=== PATIENT | female | born 1990 | race Caucasian/White ===

== ENCOUNTER 2019-08-21 09:07 | Outpatient (CLI) | payer BC, SELFPAY ==
--- NOTE | ~2019-08-21 | US_ITS ---
EXAMINATION: US abdomen complete EXAM DATE: 08/21/2019 10:33 INDICATION: Liver mass, right upper quadrant pain. TECHNIQUE: Multiple grayscale and Doppler images of the complete abdomen were obtained (by a technolo gist who performed the scan) and subsequently reviewed. Correlation is made to CT abdomen pelvis 2018. FINDINGS: The abdominal aorta is normal in caliber. Visualized portion IVC is patent. The pancreatic head a nd body are normal in appearance. The pancreatic tail is not visualized. The liver has normal echogenicity and contour. Left liver lobe anechoic lesion, cyst measuring 1.6 c m. This corresponds to the CT finding. There is no evidence of intrahepatic biliary duct dilation. Portal venous flow was seen in the hepatopedal, normal direction and has normal Doppler waveform. Common bile duct measures 4 mm, which is normal. The gallbladder wall is normal in thickness, with ex pected amount of distention. No sonographic evidence of pericholecystic fluid. There is no cholelit hiases. Technologist performing exam reports patient did not demonstrate sonographic Cano's sign. Please note that this sign is less reliable in patients who have received pain medication. Right kidney: There is normal contour and echogenicity. It measures 10.6 x 4.7 x 4.5 centimeters. There are no focal renal lesions identified. There is no hydronephrosis. Left kidney: There is normal contour and echogenicity. It measures 11.2 x 3.5 x 5.6 centimeters. T here are no focal renal lesions identified. There is no hydronephrosis. The spleen measures 10.4 centimeters and is morphologically normal. IMPRESSION: 1. Small liver cyst. 2. Unremarkable gallbladder. Reviewed, dictated and finalized at location B.
== END 2019-08-21 09:08 | disposition home or self-care (01) ==
PROVIDERS: PCP Family Medicine; Visit Provider Family Medicine
DX: D3A.8 Other benign neuroendocrine tumors (principal); R10.11 Right upper quadrant pain; R16.0 Hepatomegaly, not elsewhere classified; K76.89 Other specified diseases of liver
CPT/HCPCS: 76700

== ENCOUNTER 2019-11-05 01:25 | Outpatient (CLI) | payer BC, SELFPAY ==
[2019-11-05 19:20] LABS: SARS-CoV-2 RNA PCR Negative
== END 2019-11-05 01:26 | disposition home or self-care (01) ==
LOC: ANHCOVIDDT 01:25
PROVIDERS: PCP Family Medicine; Visit Provider Internal Medicine Gastroenterology
DX: Z01.812 Encounter for preprocedural laboratory examination (principal); Z20.828 Contact with and (suspected) exposure to other viral communicable diseases
CPT/HCPCS: 87635; C9803; U0003

== ENCOUNTER 2019-11-07 02:09 | Day surgery (SDC) | payer BC, SELFPAY ==
[2019-10-30 10:03] VITALS: BMI 37.1
--- NOTE | 2019-11-07 11:17 | WPDANESEPPF ---
Anes - Initial Pre Proc Eval Procedure: Operation Date: 11/07/19 12:45 Proposed Procedures p Colonoscopy - Virgil Mckenna MD Date/Time: 11/07/19 11:17 Surgeon: Virgil Mckenna MD Pre Op Diagnosis: Melena Patient Data Age: 29 Gender: F Height: 1.68 m Weight: 104.5 kg Allergies Allergy/AdvReac Type Severity Reaction Status Date / Time No Known Allergies Allergy Verified 11/07/19 11:38 Home Medications Medication Instructions Recorded Confirmed Type ethynodiol diacetate-ethinyl 1 tablet PO DAILY 02/13/19 10/30/19 History estradiol 1 mg-35 mcg tablet ferrous sulfate [iron] 325 mg PO DAILY 10/30/19 10/30/19 History peg 3350-electrolytes 236 240 ml PO Q10M #4000 ml 11/05/19 Rx gram-22.74 gram-6.74 gram-5.86 gram solution Patient hx anesthesia problems: none Family hx anesthesia problems: none PMFSH Past Medical History Medical History (Updated 11/07/19 @ 11:17 by Rolan Solorzano MD) Anemia Appendicitis Blood in stool Dermoid cyst of left ovary Eczema Liver cyst Migraines Neuroendocrine neoplasm of appendix Obesity Surgical History Surgical History (Updated 02/16/19 @ 19:35 by Roberta Ochoa MD) H/O ovarian cystectomy S/P appendectomy Family History Family History (Updated 10/23/13 @ 07:13 by DOCTOR UNKNOWN) Grandparent Family history of malignant neoplasm of brain Family history of type 2 diabetes mellitus Social History Social History (Updated 08/07/19 @ 16:51 by Alana Leiva) Smoking status: Never smoker Second hand tobacco smoke exposure: No Alcohol intake: current Drinks per week: 0 Alcohol use details: MAY HAVE 1 OR 2 DRINKS PER MONTH Substance use: never Substance use type: does not use Living arrangements: alone Gender identity (if verbalized by the patient): Female Spiritual care concerns: No Anes - Eval Final PreProcedure Day of Procedure 11/07/19 11:17 Patient weight: obese Heart: regular rate and rhythm Lungs: clear to auscultation and normal air movement Airway: Mallampati scale class II Neurological: alert and oriented Last oral intake: >/= 8 hours ASA classification: II Emergent: no Anesthetic plan: proceed Anesthesia type and monitoring: general GIVS Informed Consent: The patient's anesthetic plan and its attendant risks and benefits were discussed with the patient/family/POA. Questions were solicited and answers provided to the satisfaction of the patient/family/POA.
[2019-11-07 11:38] VITALS: BP 131/97; PULSE 109; RESP 20; TEMP 36.9; O2SAT 98; BMI 36.6
[2019-11-07] MEDS: LACTATED RINGERS 1,000 ML 150 ML IV CONT ×2 (11:51→13:07)
--- NOTE | 2019-11-07 12:52 | PM.HPGS ---
History of Present Illness History of Present Illness Consent: Risks, benefits, and alternatives have been discussed and questions answered. Patient agrees to proceed with procedure. Chief complaint: Melena Narrative: Shilpa Rogers is a 29 year old female with neuroendocrine tumor in appendix completely removed, never had colonoscopy Review of Systems Constitutional: Constitutional: Denies headache(s) and Denies weakness Eyes: Eyes: Denies blurry vision ENT: Reports Normal hearing present, Denies headache(s) and Denies neck pain Cardiovascular: Cardiovascular: Denies chest pain and Denies dyspnea Respiratory: Respiratory: Denies dyspnea Gastrointestinal: Gastrointestinal: Reports no additional gastrointestinal complaints Genitourinary: Genitourinary: Denies dysuria Musculoskeletal: Musculoskeletal: Denies neck pain Integumentary/Breasts: Skin/Breast: Denies dry skin Neurologic: Reports Normal hearing present, Denies headache(s) and Denies weakness Psychiatric: Psychiatric: Denies anxiety Endocrine: Endocrine: Denies change in body appearance Hematologic/Lymphatic: Hematologic/Lymphatic: Denies easy bleeding Allergic/Immunologic: Allergic/Immunologic: Denies urticaria PMFSH Past Medical History Medical History (Updated 11/07/19 @ 11:17 by Rolan Solorzano MD) Anemia Appendicitis Blood in stool Dermoid cyst of left ovary Eczema Liver cyst Migraines Neuroendocrine neoplasm of appendix Obesity Surgical History Surgical History (Updated 02/16/19 @ 19:35 by Roberta Ochoa MD) H/O ovarian cystectomy S/P appendectomy Family History Family History (Updated 10/23/13 @ 07:13 by DOCTOR UNKNOWN) Grandparent Family history of malignant neoplasm of brain Family history of type 2 diabetes mellitus Social History Social History (Updated 08/07/19 @ 16:51 by Alana Leiva) Smoking status: Never smoker Second hand tobacco smoke exposure: No Alcohol intake: current Drinks per week: 0 Alcohol use details: MAY HAVE 1 OR 2 DRINKS PER MONTH Substance use: never Substance use type: does not use Living arrangements: alone Gender identity (if verbalized by the patient): Female Spiritual care concerns: No Meds Home Medications and Allergies Home Medications Medication Instructions Recorded Confirmed Type ethynodiol diacetate-ethinyl 1 tablet PO DAILY 02/13/19 10/30/19 History estradiol 1 mg-35 mcg tablet ferrous sulfate [iron] 325 mg PO DAILY 10/30/19 10/30/19 History peg 3350-electrolytes 236 240 ml PO Q10M #4000 ml 11/05/19 Rx gram-22.74 gram-6.74 gram-5.86 gram solution Allergies Allergy/AdvReac Type Severity Reaction Status Date / Time No Known Allergies Allergy Verified 11/07/19 11:38 Vital Signs Vital Signs - 24 hr 11/07/19 11:38 Temperature 98.4 F Pulse Rate 109 H Respiratory Rate 20 Blood Pressure 131/97 H Pulse Oximetry 98 Exam Const: General: comfortable and no acute distress HENMT: General nose exam: Normal nares present Eyes: General: appearance normal, both eyes and all related structures Neck: Neck: no JVD Resp: Auscultation: clear to auscultation bilaterally Cardio: Rate: regular rate Rhythm: regular rhythm GI: Inspection: non-distended GI Palp: Yes Soft to palpation Skin: General skin exam: normal color Neuro: General: gait normal Speech: normal speech Extrem: General: normal to inspection Psych: Mental Status: mental status grossly normal Assessment and Plan Assessment and plan (1) Neuroendocrine neoplasm of appendix: Code(s): D3A.8 - Other benign neuroendocrine tumors Status: Acute Assessment and Plan: will proceed with colonoscopy (2) Blood in stool: Code(s): K92.1 - Melena Status: Acute
[2019-11-07 13:10] VITALS: BP 111/71; PULSE 89; RESP 26; O2SAT 100
[2019-11-07 13:20] VITALS: BP 112/68; PULSE 86; RESP 20; O2SAT 100
[2019-11-07 13:30] VITALS: BP 116/70; PULSE 78; RESP 18; O2SAT 100
== END 2019-11-07 13:55 | disposition home or self-care (01) ==
PROVIDERS: PCP Family Medicine; Visit Provider Internal Medicine Gastroenterology
PROC: 0DJD8ZZ Inspection of Lower Intestinal Tract, Via Natural or Artificial Opening Endoscopic (ICD-10-PCS; CPT 45378; principal; 2019-11-07 12:45)
DX: D3A.8 Other benign neuroendocrine tumors (principal); K92.1 Melena
CPT/HCPCS: 45378; J7120

== ENCOUNTER 2020-04-02 12:21 | Outpatient (CLI) | payer BC, SELFPAY ==
--- NOTE | ~2020-04-02 | XR_ITS ---
XR chest 2V DATE: 04/02/2020 12:44 INDICATION: Shortness of breath TECHNIQUE: PA and lateral views COMPARISON: None FINDINGS: Normal heart size. No hilar or mediastinal enlargement. No pulmonary infiltrate or consolid ation, pleural effusion or pulmonary vascular congestion or pneumothorax. Included skeletal structure s appear normal. IMPRESSION: Negative Reviewed, dictated and finalized at location A. AROUND PLANNER IMPRESSION: Negative
--- NOTE | ~2020-04-02 | XR_ITS ---
XR knee LT 3V DATE: 04/02/2020 12:43 INDICATION: Left knee pain. No injury. TECHNIQUE: 3 views COMPARISON: None FINDINGS: No fracture or dislocation or joint effusion. No periosteal reaction or bone destruction, r adiopaque intra-articular loose body or chondrocalcinosis. IMPRESSION: Negative Reviewed, dictated and finalized at location A. ING MACHINE TENDER IMPRESSION: Negative
== END 2020-04-02 12:22 | disposition home or self-care (01) ==
PROVIDERS: PCP Family Medicine; Visit Provider Family Medicine
DX: R06.02 Shortness of breath (principal); M25.569 Pain in unspecified knee
CPT/HCPCS: 71046; 73562

== ENCOUNTER 2021-11-08 08:38 | Outpatient (CLI) | payer BC, SELFPAY ==
--- NOTE | 2021-11-10 12:46 | WPDHOLTEREM ---
Holter/Event Monitor Holter/Event Monitor Date of procedure: 11/08/21 Holter/Event Procedure: 24 Hr Holter Monitor Indications: Lightheadedness Conclusion: 1. 24 hour holter monitor on 11/08/21. 2. Underlying rhythm is sinus rhythm. HR range 52-182 bpm; average HR 84 bpm. 3. No premature supraventricular complexes. No supraventricular tachycardia. 4. There is 1 premature ventricular complex. No ventricular tachycardia. 5. No sinoatrial or atrioventricular blocks. No significant pauses greater than 2 seconds. 6. Patient reports symptoms of lightheadedness which demonstrate sinus rhythm, HR range 125-179 bpm.
== END 2021-11-08 08:39 | disposition home or self-care (01) ==
PROVIDERS: PCP Family Medicine; Visit Provider Advanced Practice Midwife
DX: R42 Dizziness and giddiness (principal)
CPT/HCPCS: 93225; 93226

== ENCOUNTER 2023-01-25 08:17 | Outpatient (CLI) | payer BC, SELFPAY ==
--- NOTE | 2023-02-14 07:05 | WPDHOMESLEEP ---
Sleep Study - Home Unattended Date of Study: 01/25/23 Ordering Provider: Roberta Ochoa MD Interpreting Provider: Sujata Ramirez, DO Home Sleep Study Type: Apnea Link Air Height: 1.68 m Weight: 99.79 kg Body Mass Index: 35.5 Neck Circumference (inches): 13.5 [place]: 12 Reason for Sleep Study Excessive jaw clenching. Request for study by dentist Sleep History The patient is a 32-year-old female that had a sleep study ordered by her primary care for evaluation of sleep apnea. The patient denies awakening from sleep short of breath. She denies awakening at night with heartburn, belching or cough. She rarely snores and is never loud enough that others complain. She frequently has trouble sleeping when she has a cold. He denies waking up gasping for air throughout the night. She denies having breathing problems at night observed by herself or others. He denies sweating excessively at night. She denies having heart palpitations or irregular heartbeats during the night. She occasionally falls asleep during the day but never while driving. She occasionally experiences loss of muscle tone when extremely emotional. She occasionally has trouble at school or work due to sleepiness. She rarely feels unable to move while waking up or falling asleep. She frequently experiences vivid dreamlike scenes upon awakening or falling asleep. She denies feeling afraid of going to sleep. She rarely has nightmares. She frequently remembers her dreams. He frequently has thoughts racing through her mind. She rarely feels sad or depressed. She constantly has anxiety. She frequently has muscular tension. She denies noticing parts of her body jerk. She frequently kicks during the night. She denies having crawling and aching feelings in her legs and denies having leg pain during the night. She occasionally grinds her teeth during sleep and frequently awakens with morning jaw pain. She is occasionally bothered by pain during the day but rarely awakened by pain during the night. She constantly wakes up feeling stiff in the morning. She occasionally wakes up with sore or achy muscles. She constantly wakes up with pain in the neck, spine or other joints. She goes to bed at 9:00 p.m. on weekdays and at 10:00 p.m. on the weekends. It takes her 20-30 minutes to fall asleep. She wakes up 2-5 times throughout the night to urinate and the amount of time it takes her to fall back asleep is variable. She wakes up at 7:00 a.m. on both weekdays and weekends. She typically gets 5-8 hours of sleep per night. She will stay in bed for 30 minutes after waking up in the morning. She currently lives with her boyfriend. She denies consuming any caffeinated beverages within 2 hours of bedtime. She denies engaging in physical exercise before bedtime. She will watch television before falling asleep. She will take naps in the afternoon or the evening but they are not refreshing. She will consume caffeinated beverages throughout the day. She denies tobacco use. She occasionally consumes alcoholic beverages. [facility] Past Medical History Medical History Anemia Appendicitis Blood in stool Dermoid cyst of left ovary Eczema Liver cyst Migraines Neuroendocrine neoplasm of appendix Obesity Surgical History Surgical History H/O ovarian cystectomy S/P appendectomy Family History Family History Grandparent Family history of malignant neoplasm of brain Family history of type 2 diabetes mellitus Social History Social History Social History: Single Smoking status: Never smoker Second hand tobacco smoke exposure: No Alcohol intake: current Alcohol use details: Occasionally Substance use: never Substance use type: does not
[2023-02-14 07:12] VITALS: BMI 35.5
== END 2023-01-26 10:37 | disposition home or self-care (01) ==
LOC: ANHCSM 08:18
PROVIDERS: PCP Family Medicine; Visit Provider Family Medicine
DX: R40.0 Somnolence (principal); F45.8 Other somatoform disorders; G47.9 Sleep disorder, unspecified
CPT/HCPCS: 95806

== ENCOUNTER 2023-04-25 09:01 | Outpatient (CLI) | payer BC, SELFPAY ==
--- NOTE | ~2023-04-25 | CT_ITS ---
EXAMINATION: CT abdomen pelvis w con DATE: 04/25/2023 09:54 INDICATION: Left lower quadrant abdominal pain TECHNIQUE: Computed tomography (CT) of the abdomen and pelvis was performed with 100 mL Omnipaque-350 intravenous contrast. Automated exposure control and iterative reconstruction technique were employe d. The dose-length product was 999.18 mGy-cm. COMPARISON: 07/31/2018 FINDINGS: Lung bases are clear. Heart size is normal. No pericardial or pleural effusion. 1.8 cm cyst in the le ft hepatic lobe adjacent to a small region of focal hepatic steatosis. Gallbladder, spleen, pancreas, bilateral adrenal glands and kidneys are normal. Bowels are unremarkable with no evident wall thicke kathleen or obstruction. The appendix is not definitively identified. No pericecal inflammatory change to suggest acute appendicitis. Retroverted uterus and bilateral adnexa are unremarkable. Small amount o f likely physiologic free fluid in the cul-de-sac. No abscess or free intraperitoneal gas. IMPRESSION: 1. Small amount of likely physiologic free fluid in the cul-de-sac. No acute intra-abdominal/pelvic p rocess. Reviewed, dictated and finalized at location B. 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 Small amount of likely physiologic free fluid in the cul-de-sac. No acute in tra-abdominal/pelvic process.
== END 2023-04-25 09:02 | disposition home or self-care (01) ==
LOC: ANHIMG 09:04
PROVIDERS: PCP Family Medicine; Visit Provider Physician Assistant
DX: D3A.8 Other benign neuroendocrine tumors (principal); K76.89 Other specified diseases of liver; K92.1 Melena; R10.32 Left lower quadrant pain
CPT/HCPCS: 74177; Q9967

== ENCOUNTER 2023-06-04 08:42 | Outpatient (CLI) | payer BC, SELFPAY ==
--- NOTE | ~2023-06-04 | MR_ITS ---
EXAMINATION: MR abdomen wo/w con DATE: 06/04/2023 09:45 INDICATION: Increase in size of a 1.8 cm liver cyst TECHNIQUE: Magnetic resonance imaging (MRI) of the abdomen was performed without and with 20 mL Multi maria del rosario intravenous contrast. Sequences included coronal T2-weighted SS-FSE, coronal and axial FS 2D-F IESTA, axial STIR FSE, axial T2-weighted SS-FSE, axial T2-weighted FS SS-FSE, axial diffusion-weighte d SE, axial dual-echo T1-weighted FSPGR, and axial and coronal T1-weighted LAVA. Postcontrast axial T 1-weighted LAVA images were obtained in a time course. Postcontrast coronal T1-weighted LAVA images w ere obtained. COMPARISON: CT dated 04/25/2023 FINDINGS: Heart size is normal. No pericardial or pleural effusion. 1.8 cm T2 hyperintense nonenhancing cyst al marshall the anterior margin of the medial segment of the left hepatic lobe. Liver is otherwise unremarkab le. Gallbladder, spleen, pancreas, bilateral adrenal glands and right kidney are normal. 9 mm T2 hype rintense nonenhancing cyst at the upper pole of the left kidney. Visualized portion of the bowels are unremarkable. No pathologically enlarged abdominal or upper pelvic lymphadenopathy. Bones are unrema rkable with normal marrow signal throughout. IMPRESSION: 1. 1.8 cm nonenhancing cyst in the left hepatic lobe. Reviewed, dictated and finalized at location B.
== END 2023-06-04 08:43 | disposition home or self-care (01) ==
LOC: ANHIMG 08:47
PROVIDERS: PCP Family Medicine; Visit Provider Nurse Practitioner
DX: D3A.8 Other benign neuroendocrine tumors (principal); K76.89 Other specified diseases of liver; R93.2 Abnormal findings on diagnostic imaging of liver and biliary tract; K76.9 Liver disease, unspecified
CPT/HCPCS: 74183; A9577

== ENCOUNTER 2023-07-20 00:59 | Day surgery (SDC) | payer BC, SELFPAY ==
[2023-07-05 09:15] VITALS: BMI 37.1
[2023-07-20 10:30] VITALS: BP 137/84; PULSE 108; RESP 16; TEMP 36.1; O2SAT 99
[2023-07-20] MEDS: LACTATED RINGERS 1,000 ML 150 ML IV CONT (10:38)
--- NOTE | 2023-07-20 11:18 | PM.HPGS ---
History of Present Illness History of Present Illness Consent: Risks, benefits, and alternatives have been discussed and questions answered. Patient agrees to proceed with procedure. Chief complaint: Hemorrhage of anus and rectum, other specified sym Narrative: Shilpa Rogers is a 33 year old female with intermittent rectal bleeding, about 6 years ago had colonoscopy when found to have neuroendocrine in appendix. Review of Systems Review of Systems: All systems reviewed & are unremarkable except as noted in HPI and below PMFSH Past Medical History Medical History Anemia Appendicitis Blood in stool Dermoid cyst of left ovary Eczema Liver cyst Migraines Neuroendocrine neoplasm of appendix Obesity Surgical History Surgical History H/O ovarian cystectomy S/P appendectomy Family History Family History Grandparent Family history of malignant neoplasm of brain Family history of type 2 diabetes mellitus Social History Social History Social History: Single Smoking status: Never smoker Second hand tobacco smoke exposure: No Alcohol intake: current Alcohol use details: Occasionally Substance use: never Substance use type: does not use Do You Feel Safe in your Home?: Yes Lack of Transportation: No Lack of Food: Never True Current Housing: I Have Housing Concerned About Future Housing: No Difficulty Paying Gas/Electric Bills: No Difficulty Paying for Meds: No Currently Unemployed: No Education: Don't Know Difficulty w/ Childcare or Family Care: No Living arrangements: alone Occupation/Education: occupation 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 Gender identity (if verbalized by the patient): Female Sexual Orientation (if Verbalized by the Patient): Straight or Heterosexual Spiritual care concerns: No Meds Home Medications and Allergies Home Medications Medication Instructions Recorded Confirmed Type azelastine 137 mcg (0.1 %) nasal 137 mcg intranasal Q12H PRN Nasal 07/05/23 07/05/23 History spray aerosol Congestion fluticasone propionate 50 1 spray intranasal DAILY PRN Nasal 07/05/23 07/05/23 History mcg/actuation nasal Congestion spray,suspension Allergies Allergy/AdvReac Type Severity Reaction Status Date / Time No Known Allergies Allergy Verified 07/20/23 10:29 Vital Signs Vital Signs - 24 hr 07/20/23 10:30 Temperature 97 F L Pulse Rate 108 H Respiratory Rate 16 Blood Pressure 137/84 Pulse Oximetry 99 Oxygen Delivery Room Air Exam Const: General: comfortable and no acute distress HENMT: Face/Nose/Sinus: Normal nares present Eyes: General: appearance normal, both eyes and all related structures Neck: Neck: no JVD Resp: Auscultation: clear to auscultation bilaterally Cardio: Rate: regular rate Rhythm: regular rhythm GI: Inspection: non-distended GI Palp: Yes Soft to palpation Skin: General skin exam: normal color Neuro: General: gait normal Speech: normal speech Extrem: General: normal to inspection Psych: Mental Status: mental status grossly normal Assessment and Plan Assessment and plan (1) Bright red blood per rectum: Code(s): K62.5 - Hemorrhage of anus and rectum Status: Acute Assessment and Plan: colonoscopy
[2023-07-20 11:36] VITALS: BP 109/67; PULSE 93; RESP 27; O2SAT 100
[2023-07-20 11:46] VITALS: BP 126/74; PULSE 93; RESP 16; O2SAT 100
[2023-07-20 11:56] VITALS: BP 127/69; PULSE 94; RESP 23; O2SAT 100
--- NOTE | 2023-07-24 12:38 | WPDANESEPPF ---
Anes - Initial Pre Proc Eval Procedure: Operation Date: 07/20/23 13:00 Proposed Procedures p Colonoscopy - Virgil Mckenna MD Date/Time: 07/24/23 12:38 Surgeon: Virgil Mckenna MD Pre Op Diagnosis: Hemorrhage of anus and rectum, other specified sym Patient Data Age: 33 Gender: F Height: 1.68 m Weight: 102.6 kg Last Vital Signs Temp 97 F L 07/20/23 10:30 Pulse 94 07/20/23 11:56 Resp 23 H 07/20/23 11:56 BP 127/69 07/20/23 11:56 Pulse Ox 100 07/20/23 11:56 O2 Del Method Room Air 07/20/23 11:56 Allergies Allergy/AdvReac Type Severity Reaction Status Date / Time No Known Allergies Allergy Verified 07/20/23 10:29 Home Medications Medication Instructions Recorded Confirmed Type azelastine 137 mcg (0.1 %) nasal 137 mcg intranasal Q12H PRN Nasal 07/05/23 07/05/23 History spray aerosol Congestion fluticasone propionate 50 1 spray intranasal DAILY PRN Nasal 07/05/23 07/05/23 History mcg/actuation nasal Congestion spray,suspension Patient hx anesthesia problems: none Family hx anesthesia problems: none Results Review: All pre-operative results and documents have been reviewed as part of the pre-operative evaluation. [facility] Past Medical History Medical History Anemia Appendicitis Blood in stool Dermoid cyst of left ovary Eczema Liver cyst Migraines Neuroendocrine neoplasm of appendix Obesity Surgical History Surgical History H/O ovarian cystectomy S/P appendectomy Family History Family History Grandparent Family history of malignant neoplasm of brain Family history of type 2 diabetes mellitus Social History Social History Social History: Single Smoking status: Never smoker Second hand tobacco smoke exposure: No Alcohol intake: current Alcohol use details: Occasionally Substance use: never Substance use type: does not use Do You Feel Safe in your Home?: Yes Lack of Transportation: No Lack of Food: Never True Current Housing: I Have Housing Concerned About Future Housing: No Difficulty Paying Gas/Electric Bills: No Difficulty Paying for Meds: No Currently Unemployed: No Education: Don't Know Difficulty w/ Childcare or Family Care: No Living arrangements: alone Occupation/Education: occupation 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 Gender identity (if verbalized by the patient): Female Sexual Orientation (if Verbalized by the Patient): Straight or Heterosexual Spiritual care concerns: No Anes - Eval Final PreProcedure Day of Procedure 07/24/23 12:38 Patient weight: obese Heart: regular rate and rhythm Lungs: clear to auscultation Airway: Mallampati scale class II Neurological: alert and oriented Last oral intake: >/= 8 hours ASA classification: III Emergent: no Anesthetic plan: proceed Anesthesia type and monitoring: general GIVS and standard monitoring Results Review: All pre-operative results and documents have been reviewed as part of the pre-operative evaluation. Informed Consent: The patient's anesthetic plan and its attendant risks and benefits were discussed with the patient/family/POA. Questions were solicited and answers provided to the satisfaction of the patient/family/POA.
== END 2023-07-20 11:59 | disposition home or self-care (01) ==
PROVIDERS: PCP Family Medicine; Referring Provider Nurse Practitioner; Visit Provider Internal Medicine Gastroenterology
PROC: 0DJD8ZZ Inspection of Lower Intestinal Tract, Via Natural or Artificial Opening Endoscopic (ICD-10-PCS; CPT 45378; principal; 2023-07-20 13:00)
DX: K92.1 Melena (principal); D64.9 Anemia, unspecified; E66.9 Obesity, unspecified; Z68.36 Body mass index [BMI] 36.0-36.9, adult; Z98.890 Other specified postprocedural states; Z85.89 Personal history of malignant neoplasm of other organs and systems; Z80.8 Family history of malignant neoplasm of other organs or systems
CPT/HCPCS: 45378; J2704; J7120

== ENCOUNTER 2023-08-03 01:38 | Day surgery (SDC) | payer BC, SELFPAY ==
--- NOTE | 2023-07-24 16:25 | PC.NURSE ---
Report to the Outpatient Waiting Room, entrance under the green pavilion located off [facility], at time __0600 on date ____[id number]___. Planned Procedure Time: ____729____. Time changes happen often and if your time is changed the preop area will call you the afternoon before. - You and your visitor will be asked to self-screen and do not enter if you have any COVID symptoms. - A mask is optional within the hospital at this time. Patients may have clear liquids (water, carbonated beverages, clear teas, apple juice) until 3 hours prior to surgery with a maximum of 20 ounces. - No food from midnight until time of surgery Take the following medications with a SIP of water the morning of surgery: n/a Please no make-up, nail serbian, hairspray, perfume, deodorant, or body powder the day of surgery. No jewelry (including any body piercings) or valuables the day of surgery, leave them at home. Please take a shower or bath the night before, or the morning of, surgery with an antibacterial soap. Wear comfortable, loose fitting clothing. - Jewelry must be removed prior to entering the operating room. Rings and piercings that are not removed may be cut off. - The hospital will not accept responsibility for valuables. - Please leave all valuables, including medications, at home the day of surgery. If you are going home after surgery, a licensed city driver must drive you home. - NO public transportation without another adult if you receive anesthesia. - We recommend that an adult stay with you for 24 hours following discharge. - We also recommend that you do not drive, make important decision, drink alcoholic beverages, or take any drugs that were not prescribed by your health care provider for at least 24 hours after your discharge time. Follow any additional instructions given to you from your surgeon. If you or anyone in your household have experienced Covid symptoms in the past week, please notify your surgeon or the nurse liaison at the phone number below for possible testing. Telephone instructions given to ____patient (Shilpa) and asked if any additional questions and then verbalized understanding. Patient advised to call surgeon office or pre surgery nurse liaison [phone] if any additional questions.
[2023-07-24 16:40] VITALS: BMI 37.0
[2023-08-03] VITALS (8 sets, daily range): BP systolic 88–131; BP diastolic 54–84; PULSE 70–99; RESP 14–18; TEMP 36.6–36.8; O2SAT 98–100
[2023-08-03] MEDS: KETOROLAC 15 MG/ML VIAL (*BKC) IV PUSH (06:50)
[2023-08-03] MEDS: LACTATED RINGERS 1,000 ML 30 ML IV CONT ×2 (06:50→08:39)
[2023-08-03] MEDS: ACETAMINOPHEN 500 MG TABLET 1000 MG PO (06:50)
--- NOTE | 2023-08-03 07:17 | WPDANESEPPF ---
Anes - Initial Pre Proc Eval Procedure: Operation Date: 08/03/23 07:30 Proposed Procedures p Laparoscopic Excision of Lesions of Right Ovary and Pelvic Viscera Peritoneal Surface - Nikko Honeycutt MD Date/Time: 08/03/23 07:17 Surgeon: Nikko Honeycutt MD Pre Op Diagnosis: Dysmenorrhea Patient Data Age: 33 Gender: F Height: 1.68 m Weight: 105.3 kg Last Vital Signs Temp 98 F 08/03/23 06:50 Pulse 83 08/03/23 06:50 Resp 14 08/03/23 06:50 BP 131/84 08/03/23 06:50 Pulse Ox 100 08/03/23 06:50 O2 Del Method Room Air 08/03/23 06:50 Allergies Allergy/AdvReac Type Severity Reaction Status Date / Time No Known Allergies Allergy Verified 08/03/23 07:15 Home Medications Medication Instructions Recorded Confirmed Type azelastine 137 mcg (0.1 %) nasal 137 mcg intranasal Q12H PRN Nasal 07/05/23 07/24/23 History spray aerosol Congestion fluticasone propionate 50 1 spray intranasal DAILY PRN Nasal 07/05/23 07/24/23 History mcg/actuation nasal Congestion spray,suspension Patient hx anesthesia problems: none Family hx anesthesia problems: none Results Review: All pre-operative results and documents have been reviewed as part of the pre-operative evaluation. [facility] Past Medical History Medical History Anemia Appendicitis Blood in stool Dermoid cyst of left ovary Eczema Liver cyst Migraines Neuroendocrine neoplasm of appendix Obesity Surgical History Surgical History H/O ovarian cystectomy S/P appendectomy Family History Family History Grandparent Family history of malignant neoplasm of brain Family history of type 2 diabetes mellitus Social History Social History Social History: Single Smoking status: Never smoker Second hand tobacco smoke exposure: No Alcohol intake: current Alcohol use details: Occasionally Substance use: never Substance use type: does not use Do You Feel Safe in your Home?: Yes Lack of Transportation: No Lack of Food: Never True Current Housing: I Have Housing Concerned About Future Housing: No Difficulty Paying Gas/Electric Bills: No Difficulty Paying for Meds: No Currently Unemployed: No Education: Don't Know Difficulty w/ Childcare or Family Care: No Living arrangements: alone Occupation/Education: occupation 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 Gender identity (if verbalized by the patient): Female Sexual Orientation (if Verbalized by the Patient): Straight or Heterosexual Spiritual care concerns: No Anes - Eval Final PreProcedure Day of Procedure 08/03/23 07:17 Patient weight: obese Heart: regular rate and rhythm Lungs: clear to auscultation Airway: Mallampati scale class II Neurological: alert and oriented Last oral intake: >/= 8 hours ASA classification: III Emergent: no Anesthetic plan: proceed Anesthesia type and monitoring: general ETT and standard monitoring Results Review: All pre-operative results and documents have been reviewed as part of the pre-operative evaluation. Informed Consent: The patient's anesthetic plan and its attendant risks and benefits were discussed with the patient/family/POA. Questions were solicited and answers provided to the satisfaction of the patient/family/POA.
--- NOTE | 2023-08-03 07:17 | PM.IMHP ---
H&P: HPI History of Present Illness Date/Time: 08/03/23 07:17 Chief Complaint: dysmenorrhea and menorrhagia Narrative: Patient is a 33 year old G0 who presents for diagnostic laparoscopy and possible endometriosis excision. She reports dysmenorrhea and menorrhagia since menarche. It improved on hormonal contraception, however has now returned along with deep dyspareunia. Pelvic US was overall normal aside from a possible small cyst. We discussed expectant vs medical vs surgical management options, and she desires surgical management with diagnostic laparoscopy. Denies nausea, vomiting, diarrhea, abdominal pain today. Review of Systems Review of Systems: All systems reviewed & are unremarkable except as noted in HPI and below PMFSH Past Medical History Medical History Anemia Appendicitis Blood in stool Dermoid cyst of left ovary Eczema Liver cyst Migraines Neuroendocrine neoplasm of appendix Obesity Surgical History Surgical History H/O ovarian cystectomy S/P appendectomy Family History Family History Grandparent Family history of malignant neoplasm of brain Family history of type 2 diabetes mellitus Social History Social History Social History: Single Smoking status: Never smoker Second hand tobacco smoke exposure: No Alcohol intake: current Alcohol use details: Occasionally Substance use: never Substance use type: does not use Do You Feel Safe in your Home?: Yes Lack of Transportation: No Lack of Food: Never True Current Housing: I Have Housing Concerned About Future Housing: No Difficulty Paying Gas/Electric Bills: No Difficulty Paying for Meds: No Currently Unemployed: No Education: Don't Know Difficulty w/ Childcare or Family Care: No Living arrangements: alone Occupation/Education: occupation 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 Gender identity (if verbalized by the patient): Female Sexual Orientation (if Verbalized by the Patient): Straight or Heterosexual Spiritual care concerns: No Meds Home Medications and Allergies Home Medications Medication Instructions Recorded Confirmed Type azelastine 137 mcg (0.1 %) nasal 137 mcg intranasal Q12H PRN Nasal 07/05/23 07/24/23 History spray aerosol Congestion fluticasone propionate 50 1 spray intranasal DAILY PRN Nasal 07/05/23 07/24/23 History mcg/actuation nasal Congestion spray,suspension Allergies Allergy/AdvReac Type Severity Reaction Status Date / Time No Known Allergies Allergy Verified 08/03/23 07:15 Vital Signs Vital Signs - 24 hr 08/03/23 06:50 Temperature 98 F Pulse Rate 83 Respiratory Rate 14 Blood Pressure 131/84 Pulse Oximetry 100 Oxygen Delivery Room Air Exam Const: General: comfortable and no acute distress HENMT: Mouth: Yes moist mucous membranes Eyes: General: appearance normal, both eyes and all related structures Resp: Effort & Inspection: normal respiratory effort Cardio: Rate: regular rate Rhythm: regular rhythm Skin: General skin exam: normal color Extrem: General: normal to inspection Psych: Mental Status: mental status grossly normal Assessment and Plan Assessment and plan (1) Dysmenorrhea: Code(s): N94.6 - Dysmenorrhea, unspecified Status: Acute (2) Menorrhagia: Code(s): N92.0 - Excessive and frequent menstruation with regular cycle Status: Acute Plan - concern for possible endometriosis given patient's symptoms - no large abnormalities seen on pelvic US - r/b/a of diagnostic laparoscopy and excision of any endometriosis discussed with patient who would like to proceed with surgery
--- NOTE | 2023-08-03 07:21 | WPDHPUPDATE1 ---
History and Physical Update Update Date/Time: 08/03/23 07:21 History and Physical has been reviewed, including an updated exam of the patient. There are NO changes in the patient's condition. Risks, benefits, and alternatives have been discussed and questions answered. Patient agrees to proceed with procedure.
[2023-08-03] MEDS: BUPIVACAINE/EPINEPHRINE 0.5% 50 ML VIAL 20 ML INFILTRATE (08:16)
[2023-08-03] MEDS: oxyCODONE HCL (*CRX) 5 MG TAB IR PO (09:50)
--- NOTE | 2023-08-03 16:14 | W.PM.PROC2 ---
Procedure Note - Detailed Date of Procedure 08/03/23 Pre-op Diagnosis Dysmenorrhea Post-op Diagnosis Same (plus endometriosis) Procedure Performed diagnostic laparoscopy and excision/destruction of endometriosis Surgeon Nikko Honeycutt MD Anesthesia General Findings endometriotic lesions in the right posterior cul de sac and left uterosacral ligament; normal appearing uterus, ovaries and fallopian tubes Description of Procedure The patient was taken to the operating room with IVFs running. She was placed into the dorsal supine position where she received general endotracheal anesthesia without difficulty. The patient was then placed in a dorsal lithotomy position, using Morgan stirrups. Exam under anesthesia revealed the above findings. Patient was then prepped and draped in the normal sterile fashion. A time-out procedure was performed and the OR team agreed on the patient and procedure. A andrew catheter was inserted under sterile technique, draining clear urine. A bivalve speculum was inserted into the vagina. The anterior lip of the cervix was grasped with a single tooth tenaculum. An acorn uterine manipulator was then inserted into the cervix. The speculum was then removed. Gloves were then changed. Attention was turned to the patient's abdomen where Valdes's point was incised with a scalpel, making a 5 mm horizontal incision. The laparoscope was inserted under direct vision.. Intraperitoneal placement was confirmed with an opening pressure of 5 mm Hg. CO2 gas was then insufflated to achieve an intraperitoneal pressure of 15 mm Hg. Underlying organs were inspected and found to be free of injury. The patient's pelvis was examined and the above listed findings noted. A 5 mm vertical skin incision was then made in the infraumbilical fold. A 5 mm bladeless trocar was then inserted into the peritoneal cavity under direct visualization. A blunt probe was then used to further inspect the pelvis. At this time, a 5 mm skin incision was made with the scalpel in the left lower quadrant. A 5 mm bladeless trocar was then inserted into the peritoneal cavity under direct visualization. The abdomen was then inspected. The appendix, gallbladder, and liver were normal in appearance. The above findings were noted. The right posterior cul de sac endometriosis was removed using the [place] ligasure. It was sent to pathology. The left uterosacral ligament lesion was densely scarred and adherent over the area of the ureter, which was see perstalsing high on the left pelvic sidewall. Due to the proximity of the ureter, bipolar cautery was used to destroy the endometriotic lesion to avoid injuring the ureter. The secondary trocars were then removed from the patient's abdomen. The pneumoperitoneum was expelled and the umbilical trocar removed. The skin incisions were then reapproximated with 4-0 Biosyn in a subcuticular fashion. All incisions were then injected with local anesthetic. Indermil was then placed over the incisions. Attention was then turned to the patient's vaginal vault. The acorn uterine manipulator and tenaculum were removed. A bivalve speculum was inserted into the patient's vagina. The cervix was found to be hemostatic. The speculum was removed and the andrew catheter was removed. The patient tolerated the procedure well. Sponge, lap, needle, and instrument counts were correct X2. The patient was taken out of the dorsal lithotomy position and was awakened from anesthesia and taken to the recovery room in stable condition. Estimated Blood Loss 5 Pathology Yes Complications No immediate complications Condition Stable Disposition Same day
== END 2023-08-03 10:45 | disposition home or self-care (01) ==
PROVIDERS: PCP Family Medicine; Visit Provider Obstetrics & Gynecology
PROC: (CPT 49320; principal; 2023-08-03 07:30)
DX: N80.329 Endometriosis of the posterior cul-de-sac, unspecified depth (principal); N80.3C2 Endometriosis of the left uterosacral ligament, unspecified depth; N92.0 Excessive and frequent menstruation with regular cycle; N94.6 Dysmenorrhea, unspecified; E66.9 Obesity, unspecified; Z68.37 Body mass index [BMI] 37.0-37.9, adult
CPT/HCPCS: 58662; 88305; A9270; J1100; J1170; J1596; J1885; J2250; J2405; J2704; J3010; J7030; J7120